=== PATIENT | female | born 1985 | race Caucasian/White ===

== ENCOUNTER 2016-09-10 15:52 | Emergency (ER) | payer SELFPAY ==
--- NOTE | ~2016-09-10 | ER ---
PATIENT'S NAME: CATHERINE MEJIA [facility] AGE: 30 Y [address] ROOM: [place] [address] LOCATION: [facility] ADMIT DATE: 09/10/2016 ER/Outpatient Report DISCHARGE DATE: 09/10/2016 FAMILY PHYSICIAN: PHYSICIAN, NO ATTENDING PHYSICIAN: Juan R Ritter TIME SEEN: 1615 hours. HISTORY OF PRESENT ILLNESS: The patient is a 30-year-old female who presents with a bite to her left forearm. She said she was in the park and she thought she saw a spider on her arm. The bite is quite pruritic; however, she denies any pain. ALLERGIES: NONE. HOME MEDICATIONS: None. SOCIAL HISTORY: Nonsmoker. Denies any alcohol use. REVIEW OF SYSTEMS: General health good. All systems negative except for the bite to her left forearm. PHYSICAL EXAMINATION: VITAL SIGNS: Blood pressure was 140/94, temperature is 99.1, respiratory rate 20, pulse 105, and O2 saturations 96% on room air. GENERAL APPEARANCE: Alert and oriented. HEAD AND EENT: Unremarkable. No oral lesions noted. SKIN: On her left forearm, there was probably size of a silver dollar erythematous raised area, had a central mathew, probably from the bite, it was not tender to palpation. ASSESSMENT: An insect bite, left forearm, inflammatory reaction. PLAN: Recommend the use of Benadryl 25-50 mg every 6 hours for 24 hours. Topical hydrocortisone. Ice. Follow up if concerns. PATIENT'S NAME: CATHERINE MEJIA [facility] AGE: 30 Y [address] ROOM: [place] [address] LOCATION: [facility] ADMIT DATE: 09/10/2016 ER/Outpatient Report DISCHARGE DATE: 09/10/2016 FAMILY PHYSICIAN: PHYSICIAN, NO ATTENDING PHYSICIAN: Juan R Ritter DONATO TYLER FOR DO AMELIA [place]/bonillal /[id number] d: 09/10/16 2314 t: 09/16/16 1222, OUTPATIENT REPORT
== END 2016-09-10 16:34 | disposition disaster alternative care site (69) ==
LOC: GMED 15:52
DX: S50.862A Insect bite (nonvenomous) of left forearm, initial encounter (principal); W57.XXXA Bitten or stung by nonvenomous insect and other nonvenomous arthropods, initial encounter; Y92.830 Public park as the place of occurrence of the external cause